=== PATIENT | female | born 1985 ===

== ENCOUNTER 2017-10-01 18:36 | Emergency (ER) | payer BC ==
[2017-10-01 18:51] VITALS: BP 105/65
--- NOTE | 2017-10-01 19:06 | UC ---
Reena Amor Elizabeth, scribed for Yovani Pepe MD on 10/01/17 at 1859 . Throat Pain/Nasal Marshall HPI - HPI Summary HPI Summary: This patient is a 32 year old F presenting to [facility] with a chief complaint of nonproductive cough since this morning. The patient rates the pain 0/10 in severity. Symptoms aggravated by nothing. Symptoms alleviated by nothing. Patient reports nasal congestion and post-nasal drip. Patient denies fever, chills or headaches. - History of Current Complaint Chief Complaint: UCRespiratory Stated Complaint: COUGH,CONGESTION Time Seen by Provider: 10/01/17 18:48 Hx Obtained From: Patient Hx Last Menstrual Period: 09/15/17 Onset/Duration: Sudden Onset, Lasting Hours, Still Present Pain Intensity: 0 Pain Scale Used: 0-10 Numeric Cough: Nonproductive Associated Signs & Symptoms: Positive: Sinus Discomfort, Nasal Discharge. Negative: Fever - Allergies/Home Medications Allergies/Adverse Reactions: Allergies Allergy/AdvReac Type Severity Reaction Status Date / Time No Known Allergies Allergy Verified 10/01/17 18:51 Home Medications: Home Medications Ibuprofen TAB* [Advil TAB*] 200 mg PO Q6H PRN 10/01/17 [History Confirmed ] PMH/Surg Hx/FS Hx/Imm Hx Previously Healthy: Yes - Surgical History Surgical History: None - Family History Known Family History: Positive: None - patient denies FHx - Social History Alcohol Use: None Substance Use Type: None Smoking Status (MU): Never Smoked Tobacco Review of Systems Constitutional: Negative - NEGATIVE FEVER, NEGATIVE CHILLS ENT: Nasal Discharge - post-nasal drip, Sinus Congestion Respiratory: Cough - nonproductive cough Neurological: Negative - NEGATIVE HEADACHE All Other Systems Reviewed And Are Negative: Yes Physical Exam - Summary Physical Exam Summary: VITAL SIGNS: Reviewed. GENERAL: Patient is a well-developed and nourished FEMALE who is lying comfortable in the stretcher. Patient is not in any acute respiratory distress. HEAD AND FACE: Normocephalic EYES: PERRLA, EOMI x 2. EARS: Hearing grossly intact. MOUTH: Oropharynx within normal limits. NECK: Supple, trachea is midline, no adenopathy, no JVD, no carotid bruit. CHEST: Symmetric, no tenderness at palpation LUNGS: Clear to auscultation bilaterally. No wheezing or crackles. CVS: Regular rate and rhythm, S1 and S2 present, no murmurs or gallops appreciated. ABDOMEN: Soft, non-tender. Bowel sounds are normal. No abdominal abnormal pulsations. EXTREMITIES: Full ROM in all major joints, no edema, no cyanosis or clubbing. NEURO: Alert and oriented x 3. No acute neurological deficits. Speech is normal and follows commands. SKIN: Dry and warm Triage Information Reviewed: Yes Vital Signs: Initial Vital Signs Temp 98.6 F 10/01/17 18:47 Pulse 70 10/01/17 18:47 Resp 16 10/01/17 18:47 BP 105/65 10/01/17 18:47 Pulse Ox 100 10/01/17 18:47 Vital Signs Reviewed: Yes Throat Pain/Nasal Course/Dx - Course Assessment/Plan: 32-year-old female with sinusitis likely viral. The patient will be given a prescription for Flonase. She was instructed to return to the urgent care if she develops any fever, productive cough or any other symptom. The patient understands and agrees. - Differential Dx/Diagnosis Provider Diagnoses: sinusitis Discharge - Sign-Out/Discharge Documenting (check all that apply): Discharge/Admit/Transfer - Discharge Plan Condition: Stable Disposition: HOME Discharge Disposition Comment: discharge home Prescriptions: Fluticasone NASAL SPRAY 50MCG* [Flonase NASAL SPRAY 50MCG*] 2 spray BOTH NARES DAILY #1 btl Patient Education Materials: Sinusitis (ED) Referrals: Angelita Stallings MD [Primary Care Provider] - Additional Instructions: Take medications as instructed Increase your fluid intake Return to the if symptoms worsen - Billing Disposition and Condition Condition: STABLE Disposition: Home The documentation as recorded by the Reena almeida Elizabeth accurately reflects the service I personally performed and the decisions made by , Yovani Pepe MD.
== END 2017-10-01 19:02 | disposition home or self-care (01) ==
LOC: UCEAST 18:36
DX: J32.9 Chronic sinusitis, unspecified (principal)
CPT/HCPCS: 99202; G0463